=== PATIENT | female | born 1995 | race Two or more races ===

== ENCOUNTER 2019-08-27 12:09 | Emergency (ER) | payer SELFPAY ==
[2019-08-27 12:20] VITALS: BP 116/75; PULSE 85; RESP 16; TEMP 37.1; O2SAT 98; BMI 25.2
[2019-08-27 12:39] LABS: Appearance,Urine CLEAR (Clear); Bilirubin,Urine Negative (Negative); Blood, Urine 2+ (Negative); Color,Urine YELLOW (Yellow); Glucose,Urine (UA) Negative (Negative); Ketones,Urine Negative (Negative); Leukocyte Esterase,Urine Negative (Negative); Microscopic, Urine URINE MICROSCOPIC (MICROSCOPIC); Nitrate,Urine Negative (Negative); Protein,Urine Negative (Negative); Specific Gravity, Urine 1.025 (1.005-1.030)
[2019-08-27 12:40] LABS: Urine Pregnancy, HCG Qual. Negative (Negative)
--- NOTE | 2019-08-27 12:43 | [facility].EDUROGF ---
ED Disposition Clinical Impression: Dysfunctional uterine bleeding Disposition: Home, Self-Care Condition on Discharge: Good Instructions: DI for Dysmenorrhea, DI for Vaginal Bleeding Referrals: Carson Grove MD [Staff Physician] - 3 days - Critical Care Critical Care Time: No Attestation: On 08/27/19, the high probability of a clinically significant, sudden or life threatening deterioration of the following system(s) required my full and direct attention, intervention and personal management. The time I documented below is in addition to time spent performing reported procedures but includes the following listed in this critical care notation. Medical Decision Making - Medical Records Medical records reviewed: Yes: I reviewed the patient's medical records. - Huey Inquiry Pt receiving controlled substance: No Vital Signs: 08/27/19 12:20 Temperature 98.7 F Temperature Source Oral Pulse Rate [Right Radial] 85 Respiratory Rate 16 Blood Pressure [Right Arm] 116/75 Blood Pressure Mean [Right Arm] 88 Blood Pressure Source [Right Arm] Automatic Cuff Blood Pressure Position [Right Arm] Sitting 02 Sat by Pulse Oximetry 98 Oxygen Delivery Method Room Air - Lab Data Lab Results 08/27/19 12:35: Urine Color Yellow, Urine Appearance Clear, Urine pH 7.0, Ur Specific [place] 1.025, Urine Protein Negative, Urine Glucose (UA) Negative, Urine Ketones Negative, Urine Blood 2+, Urine Nitrate Negative, Urine Bilirubin Negative, Urine Urobilinogen 1.0, Ur Leukocyte Esterase Negative, Urine RBC Occasional, Urine WBC Occasional, Ur Squamous Epith Cells 5-10, Amorphous Sediment 1+, Urine Bacteria None 08/27/19 12:35: Urine HCG, Qual Negative Medical Decision Narrative: Patient here with dysfunctional uterine bleeding. She has no clinical signs of anemia such as pale skin, tachycardia or hypotension. She has a benign abdomen. Urinalysis negative for infection and test negative. Advise follow-up with gynecology for dysfunctional uterine bleeding. Female Urogenital HPI - General Chief complaint: Vaginal Bleeding Stated complaint: stomach issues Time Seen by Provider: 08/27/19 12:43 Mode of Arrival: Ambulatory Limitations: Language Barrier Description of Symptoms (Recalled from ER Triage Doc. by RN): Pt reporting lower abd/pelvic pain x3 days, pt reports dark vaginal bleeding that began today. Pt reports has been having pain since load [place] 3 days ago. Pt reports was supposed to start menstrual period 3 days ago. Pt boyfriend translating for her, pt does not speak macedonian. - History of Present Illness HPI Narrative: This is a 24-year-old female who presents to the emergency department for evaluation of irregular menstrual cycle. She last had a menstrual period on August 13 for about 4 days which was normal. But then she started her period again on August 21 and this is irregular for her. She only has 1 ovary secondary to previous oophorectomy. She has some lower abdominal cramping and pain, typical for her menstrual cycles. No diarrhea. She is only going through about 2 pads per day. No known exacerbating or alleviating factors. She has not had irregular periods before. : no - Related Data Allergies Allergy/AdvReac Type Severity Reaction Status Date / Time No Known Allergies Allergy Verified 08/27/19 12:21 [facility] History - Hepatitis A Screen Drug use history?: No High risk sexual behaviors?: No History of sexually transmitted infection?: No Currently employed?: No Childcare worker?: No Do you have indoor plumbing?: Yes Do you have electricity?: Yes Attestation statement:: This patient has been screened for Hepatitis A risk factors. I have reviewed the patient's past medical history: Yes Medical History: Denies:: Diabetes Mellitus Type 1, Diabetes Mellitus Type 2 - Social History Alcohol Intake: never Occupational Status: other ROS Obtained: Yes All systems revi
[2019-08-27 12:44] LABS: Amorphous Sediment,Urine 1+ /lpf; RBC,Urine Occasional #/hpf (0-3); WBC,Urine Occasional #/hpf (0-3)
[2019-08-27 12:53] VITALS: BP 116/75; PULSE 85; RESP 16; TEMP 37.1; O2SAT 98
== END 2019-08-27 12:55 | disposition home or self-care (01) ==
PROVIDERS: Emergency Provider Emergency Medicine
DX: N92.1 Excessive and frequent menstruation with irregular cycle (principal)
CPT/HCPCS: 81001; 81025; 99282